=== PATIENT | male | born 1950 | race Two or more races ===

== ENCOUNTER 2021-01-25 16:12 | Inpatient (IN) | payer MEDICAID ==
[~2021-01-25] VITALS: Ht 175.3 cm; Wt 124.8 kg
[2021-01-25] MEDS ORDERED: FUROSEMIDE 40 MG/4 ML VIAL IV ONE (17:30)
[2021-01-25 18:27] LABS: Basophils # (auto) 0.1 10 ^3/uL (0-0.2); Basophils % (auto) 1.3 % (0.0-2.0); Eosinophils # (auto) 0.2 10 ^3/uL (0-0.8); Eosinophils % (auto) 2.4 % (0.0-7.0); Hematocrit 41.1 % (41.0-53.0); Hemoglobin 13.8 g/dL (13.5-17.5); Lymphocytes # (auto) 1.2 10 ^3/uL (0.4-5.4); Lymphocytes % (auto) 16.8 % (10.0-50.0); Mean Corpuscular Hemoglobin 29.5 pg (28.0-32.0); Mean Corpuscular Hgb Conc. 33.5 g/dL (32.0-36.0); Monocytes # (auto) 0.4 10 ^3/uL (0-1.3); Monocytes % (auto) 5.2 % (0.0-12.0); Neutrophils # (auto) 5.4 10 ^3/uL (1.6-8.6); Neutrophils % (auto) 74.3 % (37.0-80.0); Nucleated Red Blood Cells % 0.1 %; Platelet Count (auto) 211 10^3/uL (140-450); Red Blood Cells 4.67 10^6/uL (4.5-5.90); Red Cell Distribution Width 13.7 % (11.8-14.3); White Blood Cell 7.3 10^3/uL (4.4-10.8)
[2021-01-25 18:49] LABS: Albumin 3.4 g/dL (3.4-5.0); Anion Gap 3 (5-15); BUN/Creatinine Ratio 6.9; Blood Urea Nitrogen 11 mg/dL (7-18); Carbon Dioxide 24 mmol/L (21-32); Chloride 114 mmol/L (98-107); GFR African American 55 mL/min; GFR Non-African American 46 mL/min; Glucose 82 mg/dL (74-106); Magnesium 2.2 mg/dL (1.6-2.6); Potassium 5.4 mmol/L (3.5-5.1); Sodium 141 mmol/L (136-145)
[2021-01-25 18:57] LABS: Alanine Aminotransferase 19 U/L (16-61); Alkaline Phosphatase 108 U/L (45-117); Aspartate Aminotransferase 37 U/L (15-37); Bilirubin, Total 0.6 mg/dL (0.2-1.0); Total Protein 8.1 g/dL (6.4-8.2)
[2021-01-25] MEDS ORDERED: NITROGLYCERIN 0.4 MG SL TAB SL PRN (23:15)
[2021-01-25] MEDS ORDERED: ACETAMINOPHEN 325 MG TAB PO PRN (23:15)
[2021-01-25] MEDS ORDERED: ONDANSETRON HCL 4 MG/2 ML VIAL IV PRN (23:15)
[2021-01-25] MEDS ORDERED: MORPHINE SULF INJ 2 MG/ML SYRINGE 1ML IV PRN (23:15)
[2021-01-25] MEDS ORDERED: TEMAZEPAM 15 MG CAP PO PRN (23:15)
[2021-01-26] VITALS (7 sets, daily range): BP systolic 119–159; BP diastolic 61–81
[2021-01-26 00:16] LABS: INR 1.05 (0.9-1.15); Partial Thromboplastin Time 27.4 sec (23.0-31.2)
[2021-01-26] MEDS ORDERED: PNEUMOCOCCAL VACC POLYS 25 MCG/0.5 ML VIAL IM ONE (02:45)
[2021-01-26] MEDS ORDERED: APIX5TAB PO (02:47)
[2021-01-26] MEDS ORDERED: CLON0.1T PO (02:47)
[2021-01-26] MEDS ORDERED: ACET1CAP14 PO (02:47)
[2021-01-26] MEDS ORDERED: LISI20TA28 PO (02:47)
[2021-01-26] MEDS ORDERED: FUROSEMIDE 20 MG/2 ML VIAL IV SCH (06:00)
[2021-01-26 07:20] LABS: Basophils # (auto) 0 10 ^3/uL (0-0.2); Basophils % (auto) 0.5 % (0.0-2.0); Eosinophils # (auto) 0.3 10 ^3/uL (0-0.8); Eosinophils % (auto) 2.9 % (0.0-7.0); Hematocrit 42.3 % (41.0-53.0); Hemoglobin 14.4 g/dL (13.5-17.5); Lymphocytes # (auto) 1.5 10 ^3/uL (0.4-5.4); Lymphocytes % (auto) 16.7 % (10.0-50.0); Mean Corpuscular Hemoglobin 30.2 pg (28.0-32.0); Mean Corpuscular Volume 88.9 fL (80.0-100.0); Monocytes # (auto) 0.7 10 ^3/uL (0-1.3); Monocytes % (auto) 7.8 % (0.0-12.0); Neutrophils # (auto) 6.3 10 ^3/uL (1.6-8.6); Neutrophils % (auto) 72.1 % (37.0-80.0); Platelet Count (auto) 204 10^3/uL (140-450); Red Blood Cells 4.76 10^6/uL (4.5-5.90); Red Cell Distribution Width 13.6 % (11.8-14.3); White Blood Cell 8.7 10^3/uL (4.4-10.8)
[2021-01-26 07:57] LABS: Potassium 4.1 mmol/L (3.5-5.1)
[2021-01-26 08:14] LABS: Albumin 3.5 g/dL (3.4-5.0); BUN/Creatinine Ratio 9.2; Bilirubin, Total 0.8 mg/dL (0.2-1.0); Calcium 8.6 mg/dL (8.5-10.1); Total Protein 7.6 g/dL (6.4-8.2)
[2021-01-26] MEDS: APIXABAN 5 MG TAB PO SCH ×2 (09:43→21:51)
[2021-01-26] MEDS: LISINOPRIL 5 MG TAB PO SCH (09:44)
[2021-01-26] MEDS: FAMOTIDINE 20 MG TAB PO SCH (09:44)
[2021-01-26] MEDS: FUROSEMIDE 40 MG/4 ML VIAL IV SCH (17:57)
[2021-01-27 05:00] VITALS: BP 119/60
[2021-01-27 06:37] LABS: Potassium 3.6 mmol/L (3.5-5.1)
[2021-01-27 06:44] LABS: BUN/Creatinine Ratio 12.2; Calcium 8.6 mg/dL (8.5-10.1)
[2021-01-27] MEDS: FUROSEMIDE 40 MG/4 ML VIAL IV SCH (07:00)
[2021-01-27 08:15] VITALS: BP 125/73
[2021-01-27 09:00] VITALS: BP 125/73
[2021-01-27] MEDS: FAMOTIDINE 20 MG TAB PO SCH (09:50)
[2021-01-27] MEDS: APIXABAN 5 MG TAB PO SCH ×2 (09:50→21:35)
[2021-01-27] MEDS: LISINOPRIL 5 MG TAB PO SCH (09:50)
[2021-01-27 13:00] VITALS: BP 136/70
[2021-01-27 17:00] VITALS: BP 130/70
[2021-01-27 17:05] LABS: Urine Bacteria FEW /hpf (None Seen); Urine Blood 2+ /uL (Negative); Urine Specific Gravity 1.008 (1.001-1.035); Urine WBC 2 /hpf (0 - 3)
[2021-01-27 17:18] LABS: Protein, Urine 7.2 mg/dL (0.0-11.9)
[2021-01-27 22:00] VITALS: BP 121/64
[2021-01-28 05:00] VITALS: BP 116/63
[2021-01-28 07:27] LABS: Potassium 3.8 mmol/L (3.5-5.1)
[2021-01-28 07:41] LABS: BUN/Creatinine Ratio 14.9; Calcium 8.3 mg/dL (8.5-10.1)
[2021-01-28 08:15] VITALS: BP 142/68
[2021-01-28 09:08] VITALS: BP 142/68
[2021-01-28] MEDS ORDERED: FUROSEMIDE 20 MG/2 ML VIAL IV SCH (10:00)
[2021-01-28] MEDS: FAMOTIDINE 20 MG TAB PO SCH (10:06)
[2021-01-28] MEDS: APIXABAN 5 MG TAB PO SCH (10:06)
[2021-01-28] MEDS: LISINOPRIL 5 MG TAB PO SCH (10:08)
[2021-01-28 13:02] VITALS: BP 143/74
[2021-01-28] MEDS ORDERED: MIDAZOLAM HCL 5 MG/ML-1ML VIAL IV ONE (14:15)
[2021-01-28] MEDS ORDERED: fentaNYL CITRATE 100 MCG/2 ML VL IV ONE (14:15)
[2021-01-28] MEDS ORDERED: FURO40TA4 PO (15:32)
[2021-01-28 16:25] VITALS: BP 125/64
[2021-01-28 16:41] VITALS: BP 125/64
[2021-01-28] MEDS ORDERED: SODIUM CHLOR 0.9% PF (SALINE LOCK) 10ML VIAL/SYR IV SCH (22:00)
== END 2021-01-28 17:50 | disposition home health service (06) | DRG 194 ==
LOC: ER 16:12 → TELE 23:12 → TELE-EAST 01-26 00:04
PROVIDERS: ADMIT Nurse Practitioner; ATTEND Internal Medicine
PROC: B24BZZ4 Ultrasonography of Heart with Aorta, Transesophageal (ICD-10-PCS; principal; 2021-01-28)
DX: I13.0 Hypertensive heart and chronic kidney disease with heart failure and stage 1 through stage 4 chronic kidney disease, or unspecified chronic kidney disease (principal); N17.9 Acute kidney failure, unspecified; E66.01 Morbid (severe) obesity due to excess calories; E87.5 Hyperkalemia; Z79.01 Long term (current) use of anticoagulants; I89.0 Lymphedema, not elsewhere classified; I50.33 Acute on chronic diastolic (congestive) heart failure; I70.203 Unspecified atherosclerosis of native arteries of extremities, bilateral legs; E78.5 Hyperlipidemia, unspecified; Z20.822 Contact with and (suspected) exposure to COVID-19; I35.1 Nonrheumatic aortic (valve) insufficiency; R31.29 Other microscopic hematuria; N18.31 Chronic kidney disease, stage 3a; Z68.41 Body mass index [BMI] 40.0-44.9, adult; Z88.0 Allergy status to penicillin; Z83.3 Family history of diabetes mellitus; Z82.0 Family history of epilepsy and other diseases of the nervous system; Z82.49 Family history of ischemic heart disease and other diseases of the circulatory system; Z86.711 Personal history of pulmonary embolism; Z86.73 Personal history of transient ischemic attack (TIA), and cerebral infarction without residual deficits; Z87.442 Personal history of urinary calculi
CPT/HCPCS: 36415; 71045; 76775; 80048; 80053; 81001; 82570; 83735; 83880; 84156; 84484; 85025; 85049; 85610; 85730; 87426; 93005; 93306; 93312; 93925; 93970; 96374; 96375; 99152; 99291; G0378

== ENCOUNTER 2021-06-05 19:37 | Emergency (ER) | payer MEDICAID ==
[~2021-06-05] VITALS: Ht 175.3 cm; Wt 122.5 kg
[~2021-06-05 19:37] MED LIST: ACET1CAP14 PO; APIX5TAB PO; CLON0.1T PO; FURO40TA4 PO; LISI20TA28 PO
[2021-06-06 00:23] VITALS: BP 150/65
== END 2021-06-06 04:54 | disposition home or self-care (01) ==
LOC: ER 19:38
DX: L02.11 Cutaneous abscess of neck (principal); R22.1 Localized swelling, mass and lump, neck; E66.9 Obesity, unspecified; E78.5 Hyperlipidemia, unspecified; I10 Essential (primary) hypertension; Z87.442 Personal history of urinary calculi; Z68.39 Body mass index [BMI] 39.0-39.9, adult; Z86.73 Personal history of transient ischemic attack (TIA), and cerebral infarction without residual deficits

== ENCOUNTER 2021-10-13 12:19 | Emergency (ER) | payer MEDICAID ==
[~2021-10-13] VITALS: Ht 175.3 cm; Wt 124.7 kg
[2021-10-13 14:00] LABS: Basophils # (auto) 0 10 ^3/uL (0-0.2); Basophils % (auto) 0.6 % (0.0-2.0); Eosinophils # (auto) 0.2 10 ^3/uL (0-0.8); Hematocrit 39.9 % (41.0-53.0); Lymphocytes # (auto) 1.3 10 ^3/uL (0.4-5.4); Lymphocytes % (auto) 16.1 % (10.0-50.0); Mean Corpuscular Hemoglobin 28.7 pg (28.0-32.0); Mean Corpuscular Hgb Conc. 32.6 g/dL (32.0-36.0); Mean Corpuscular Volume 88.1 fL (80.0-100.0); Monocytes # (auto) 0.5 10 ^3/uL (0-1.3); Monocytes % (auto) 6.6 % (0.0-12.0); Neutrophils # (auto) 5.7 10 ^3/uL (1.6-8.6); Neutrophils % (auto) 73.7 % (37.0-80.0); Nucleated Red Blood Cells % 0.2 %; Red Blood Cells 4.52 10^6/uL (4.5-5.90); Red Cell Distribution Width 13.3 % (11.8-14.3); White Blood Cell 7.8 10^3/uL (4.4-10.8)
[2021-10-13 14:16] LABS: Albumin 3.6 g/dL (3.4-5.0); Calcium 9.3 mg/dL (8.5-10.1); Potassium 4.3 mmol/L (3.5-5.1)
[2021-10-13 14:21] LABS: BUN/Creatinine Ratio 12.4; Bilirubin, Total 0.3 mg/dL (0.2-1.0); Total Protein 8.1 g/dL (6.4-8.2)
[2021-10-13] MEDS ORDERED: cloNIDine HCL 0.1 MG TAB PO ONE (15:30)
[2021-10-13 15:48] LABS: Urine Bacteria FEW /hpf (None Seen); Urine Blood Negative /uL (Negative); Urine Mucus FEW (None Seen); Urine Specific Gravity 1.013 (1.001-1.035); Urine WBC 1 /hpf (0 - 3)
[2021-10-13 16:40] VITALS: BP 124/76
== END 2021-10-13 18:35 | disposition home or self-care (01) ==
LOC: ER 12:19
DX: I10 Essential (primary) hypertension (principal); R06.02 Shortness of breath; E78.5 Hyperlipidemia, unspecified; Z86.73 Personal history of transient ischemic attack (TIA), and cerebral infarction without residual deficits
CPT/HCPCS: 36415; 70450; 80053; 81001; 84484; 85025; 93005